=== PATIENT | female | born 1965 | race Caucasian/White ===

== ENCOUNTER 2019-03-15 21:28 | Emergency (ER) | payer OTHER ==
[2019-03-15] MEDS ORDERED: HYDROcodone/Acetaminophen 5/325 mg Tablet ONE (22:08)
--- NOTE | 2019-03-15 22:17 | RAD ---
Exam: AP pelvis one view HISTORY: Injury COMPARISON: None FINDINGS: Extensive postsurgical changes overlying the pelvis. Minimal degenerative and osteoporosis changes. Minimal deformity of the right superior and inferior pubic rami which appear to be related to old [place]. No evidence for fracture, dislocation, or other significant acute osseous abnormality. IMPRESSION: No significant acute process.
--- NOTE | 2019-03-15 22:37 | RAD ---
EXAM: Left hip 2 views: HISTORY: Left hip injury COMPARISON: None FINDINGS: Degenerative changes. No acute fracture or dislocation or other significant acute osseous abnormality. IMPRESSION: No significant acute process.
--- NOTE | 2019-03-15 23:20 | CT ---
Exam: Pelvic CT scan without IV contrast: HISTORY: Left hip pain following injury from a fall FINDINGS: No evidence for acute fracture or dislocation. Mild degenerative and osteoarthrosis changes. Numerous postsurgical clips in the pelvis. IMPRESSION: Minimal degenerative and osteoarthrosis changes. No acute fracture or dislocation.
== END 2019-03-15 23:30 | disposition home or self-care (01) ==
LOC: NAV ERS 21:28
DX: S70.02XA Contusion of left hip, initial encounter (principal); E03.9 Hypothyroidism, unspecified; Z86.718 Personal history of other venous thrombosis and embolism; F98.8 Other specified behavioral and emotional disorders with onset usually occurring in childhood and adolescence; W01.0XXA Fall on same level from slipping, tripping and stumbling without subsequent striking against object, initial encounter; Y93.01 Activity, walking, marching and hiking
CPT/HCPCS: 72170; 72192